=== PATIENT | male | born 1950 | race African-American/Black ===

== ENCOUNTER 2017-01-16 11:38 | Emergency (ER) | payer MEDICARE, BC ==
--- NOTE | 2017-01-16 13:45 | UC ---
Dental HPI - HPI Summary HPI Summary: Gradually worsening pain above L front upper incisor for about a week. Tooth is cap/implant, pain is up above gum line. Denies swelling, fever, or drainage. Called dentist but his dentist is out for 3 weeks and office couldn't see him until 3 days from now. here hoping for abx and will see dentist later. - History of Current Complaint Stated Complaint: SKIN COMPLAINT Time Seen by Provider: 01/16/17 13:32 Hx Obtained From: Patient Onset/Duration: Gradual Onset, Lasting Days Severity: Moderate - Allergies/Home Medications Allergies/Adverse Reactions: Allergies Allergy/AdvReac Type Severity Reaction Status Date / Time No Known Allergies Allergy Verified 01/16/17 13:27 Home Medications: Home Medications Acetaminophen TAB* [Tylenol TAB*] 1 tab PO DAILY 01/16/17 [History Confirmed 07/25] Amlodipine Besylate [Norvasc 10 mg tab] 10 mg PO DAILY 01/16/17 [History Confirmed 01/16/17] Dutasteride [Avodart] 0.5 mg PO DAILY 01/16/17 [History Confirmed 01/16/17] Hydrochlorothiazide TAB* [Hydrodiuril TAB*] 12.5 mg PO DAILY 01/16/17 [History Confirmed 01/16/17] Naproxen TAB* [Naprosyn 250 mg TAB*] 1 tab PO PRN 01/16/17 [History] PMH/Surg Hx/FS Hx/Imm Hx Cardiovascular History Of: Reports: Hypertension - Surgical History Surgical History: None - Family History Known Family History: Positive: Hypertension - Social History Alcohol Use: Daily Alcohol Amount: 1 BEER DAILY Substance Use Type: Marijuana Substance Use Comment - Amount & Last Used: OCCASIONALLY Smoking Status (MU): Current Some Day Smoker Type: Cigars Review of Systems Constitutional: Negative Skin: Negative Eyes: Negative ENT: Dental Pain Respiratory: Negative Cardiovascular: Negative Gastrointestinal: Negative Genitourinary: Negative Motor: Negative Neurovascular: Negative Musculoskeletal: Negative Neurological: Negative Psychological: Negative All Other Systems Reviewed And Are Negative: Yes Physical Exam Triage Information Reviewed: Yes Appearance: Well-Appearing, No Pain Distress, Well-Nourished Vital Signs: Initial Vital Signs Temp 98.1 F 01/16/17 13:30 Pulse 54 01/16/17 13:30 Resp 18 01/16/17 13:30 BP 129/86 01/16/17 13:30 Pulse Ox 99 01/16/17 13:30 Vital Signs Reviewed: Yes Eye Exam: Normal Eyes: Positive: Conjunctiva Clear ENT Exam: Normal ENT: Positive: Normal ENT inspection, Hearing grossly normal, Pharynx normal, TMs normal Dental: Positive: Percussion Tenderness @ - #9. Negative: Dental Fracture @, Abscess @ Neck exam: Normal Neck: Positive: Supple, Nontender, No Lymphadenopathy Respiratory Exam: Normal Respiratory: Positive: Chest non-tender, Lungs clear, Normal breath sounds, No respiratory distress, No accessory muscle use Cardiovascular Exam: Normal Cardiovascular: Positive: RRR, No Murmur Musculoskeletal Exam: Normal Neurological Exam: Normal Neurological: Positive: Alert Psychological Exam: Normal Skin Exam: Normal Dental Complaint Course/Dx - Differential Dx/Diagnosis Provider Diagnoses: Toothache #9. elevated blood pressure due to pain Discharge - Discharge Plan Condition: Stable Disposition: HOME Prescriptions: Penicillin VK TAB 500 MG(NF) [Penicillin VK 500 mg Tab(NF)] 500 mg PO QID #28 tab Patient Education Materials: Toothache (ED) Referrals: Jorge Valencia MD [Primary Care Provider] - Additional Instructions: Please follow up with your dentist as soon as you can get an appointment.
[2017-01-16 13:50] VITALS: BP 129/86
== END 2017-01-16 14:00 | disposition home or self-care (01) ==
LOC: UCEAST 11:38
DX: K08.89 Other specified disorders of teeth and supporting structures (principal); I10 Essential (primary) hypertension
CPT/HCPCS: 99212; G0463